=== PATIENT | female | born 1985 | race African-American/Black ===

== ENCOUNTER 2017-10-23 07:46 | Emergency (ER) | payer OTHER ==
[2017-10-23 07:51] VITALS: BP 113/63; PULSE 73; TEMP 98.1; BMI 42.5
[2017-10-23] MEDS ORDERED: KETOROLAC TROMETHAMINE 60 MG/2 ML VIAL IM ONE (08:23)
[2017-10-23] MEDS ORDERED: KETOROLAC TROMETHAMINE 60 MG/2 ML VIAL ONE (08:25)
--- NOTE | 2017-10-23 08:58 | PDOC ---
History of Present Illness - General Chief Complaint: Toothache Stated Complaint: TOOTHACHE Time Seen by Provider: 10/23/17 08:22 History Source: Patient Exam Limitations: No Limitations - History of Present Illness Initial Comments: 10/23/17 08:53 Patient is a [32-year-old female, denies any significant medical history presents with intermittent left upper and lower dental pain. Patient reports that she has been having this intermittent pain has cracked tooth to the left first lower molar. Does not have a dentist, no facial edema, no fever, no difficulty swallowing, no chest pain or shortness of breath.] Past Medical History: [Denies]. Allergies: No known allergies Medications: [None] Family History: Non-contributory Social History: Denies smoking, alcohol use, or IVDU Review of Systems GENERAL/CONSTITUTIONAL: [No fever or chills. No weakness. No weight change.] HEAD, EYES, EARS, NOSE AND THROAT: [No change in vision. No ear pain or discharge. No sore throat. Left-sided dental pain] CARDIOVASCULAR: [No chest pain or shortness of breath.] RESPIRATORY: [No cough, wheezing, or hemoptysis.] GASTROINTESTINAL: [No nausea, vomiting, diarrhea or constipation. No rectal bleeding.] GENITOURINARY: [No dysuria, frequency, or change in urination.] MUSCULOSKELETAL: [No joint or muscle swelling or pain. No neck or back pain.] SKIN AND BREASTS: [No rash or easy bruising.] NEUROLOGIC: [No headache, vertigo, loss of consciousness, or loss of sensation.] ENDOCRINE: [No increased thirst. No abnormal weight change.] HEMATOLOGIC/LYMPHATIC: [No anemia, easy bleeding, or history of blood clots.] ALLERGIC/IMMUNOLOGIC: [No hives or skin allergy. No latex allergy.] Physical Exam: GENERAL: [The patient is awake, alert, and fully oriented, in no acute distress. ] HEAD: [Normal with no signs of trauma.] EYES: [Pupils equal, round and reactive to light, extraocular movements intact, sclera anicteric, conjunctiva clear.] ENT: [Ears normal, nares patent, oropharynx clear without exudates. Moist mucous membranes. No uvula deviation. There is a fracture noted to tooth first left lower molar, with no visible abscess no fluctuance. ] NECK: [Normal range of motion, supple without lymphadenopathy, JVD, or masses. No edema.] LUNGS: [Breath sounds equal, clear to auscultation bilaterally. No wheezes, and no crackles.] HEART: [Regular rate and rhythm, normal S1 and S2 without murmur, rub or gallop. ] ABDOMEN: [Soft, nontender, normoactive bowel sounds. No guarding, no rebound. No masses. No bruising or abrasions] MUSCULOSKELETAL: [Normal range of motion, no edema. No clubbing or cyanosis. No cords, erythema, or tenderness. No CVA Tenderness with fist.] NEUROLOGICAL: [Cranial nerves II through XII grossly intact. Normal speech, normal gait.] SKIN: [Warm, Dry, normal turgor, no rashes or lesions noted.] Past History - Past Medical History Allergies/Adverse Reactions: Allergies Allergy/AdvReac Type Severity Reaction Status Date / Time Shellfish Allergy Severe Swelling Verified 10/23/17 07:51 Home Medications: Ambulatory Orders Amox-Tr/K Cl [Augmentin - 875Mg Tablet] 1 tab PO BID #14 tablet 10/23/17 Oxycodone HCl/Acetaminophen [Percocet 5-325 mg Tablet] 1 - 2 tab PO Q4H #20 tablet MDD 10 10/23/17 Cancer: No COPD: No - Suicide/Smoking/Psychosocial Hx Smoking Status: Yes Smoking History: Former smoker Have you smoked in the past 12 months: Yes Number of Cigarettes Smoked Daily: 20 If you are a former smoker, when did you quit?: 2011 Information on smoking cessation initiated: No 'Breaking Loose' booklet given: 05/10/12 Hx Alcohol Use: No Drug/Substance Use Hx: No Substance Use Type: None Hx Substance Use Treatment: No *Physical Exam - Vital Signs Last Vital Signs Temp Pulse Resp BP Pulse Ox 98.1 F 73 18 113/63 99 10/23/17 07:48 10/23/17 07:48 10/23/17 07:48 10/23/17 07:48 10/23/17 07:48 ED Treatment Course - Medications Given in the ED: ED Medications Discontinued Medications Generic Name Dose Route Start Last Admin Trade Name Freq PRN Reason Stop Dose Admin Ketorolac Tromethamine 60 mg 10/23/17 08:23 10/23/17 08:30 Toradol Injection - IM 10/23/17 08:24 60 mg ONCE ONE Administration Medical Decision Making - Medical Decision Making 10/23/17 09:03 A/P : Patient with dental pain cracked tooth possible root exposure. No visible abscess. Toradol 60 mg PO x 1 given with good result. Will DC patient on Augmentin, percocet for pain, follow up with Dental as soon as possible. There is no facial edema, no difficulty swallowing. *DC/Admit/Observation/Transfer Diagnosis at time of Disposition: Pain, dental - Discharge Dispostion Disposition: HOME Condition at time of disposition: Stable Admit: No - Prescriptions Prescriptions: Amox-Tr/K Cl [Augmentin - 875Mg Tablet] 1 tab PO BID #14 tablet Oxycodone HCl/Acetaminophen [Percocet 5-325 mg Tablet] 1 - 2 tab PO Q4H #20 tablet MDD 10 - Referrals - Patient Instructions Printed Discharge Instructions: DI for Dental Pain Additional Instructions: Warm salt water gargles. Please take motrin for minor pain, percoct for increased pain. Follow up with dental clinic. [phone] as soon as possible. - Post Discharge Activity Forms/Work/School Notes: Back to Work
== END 2017-10-23 09:01 | disposition home or self-care (01) ==
LOC: JERFT 07:46
PROC: 3E0233Z Introduction of Anti-inflammatory into Muscle, Percutaneous Approach (ICD-10-PCS; principal; 2017-10-23)
DX: K08.89 Other specified disorders of teeth and supporting structures (principal); K03.81 Cracked tooth; F17.210 Nicotine dependence, cigarettes, uncomplicated
CPT/HCPCS: 96372; 99281-25

== ENCOUNTER 2018-10-31 09:38 | Inpatient (IN) | payer OTHER ==
--- NOTE | 2018-10-31 11:17 | PDOC ---
History of Present Illness - General Chief Complaint: Wound Stated Complaint: CYSTS ON THE LOWER BACK Time Seen by Provider: 10/31/18 10:28 History Source: Patient Exam Limitations: No Limitations - History of Present Illness Initial Comments: 10/31/18 9:42 Patient came to emergency department for evaluation of blisters/cyst on her buttocks, top of but crack. States suffers from frequent sinus and infections, and has had multiple excisions/incision and drainage of hidradenitis, and breast cysts. States the onset of this was on Wednesday, she has been using hot soaks and boil ease creams with minimal resolved. States this felt feverish but did not take temperature, no other illness presently Timing/Duration: 1 week Severity: moderate, severe Past History - Travel Traveled outside of the country in the last 30 days: No Close contact w/someone who was outside of country & ill: No - Past Medical History Allergies/Adverse Reactions: Allergies Allergy/AdvReac Type Severity Reaction Status Date / Time Shellfish Allergy Severe Swelling Verified 10/31/18 10:21 Home Medications: Ambulatory Orders NK [No Known Home Medication] 10/31/18 Cancer: No COPD: No - Suicide/Smoking/Psychosocial Hx Smoking Status: Yes Smoking History: Unknown if ever smoked Have you smoked in the past 12 months: Yes Number of Cigarettes Smoked Daily: 20 If you are a former smoker, when did you quit?: 2011 'Breaking Loose' booklet given: 05/10/12 Hx Alcohol Use: No Drug/Substance Use Hx: No Substance Use Type: None Hx Substance Use Treatment: No Review of Systems - Review of Systems Able to Perform ROS?: Yes Is the patient limited Khmer proficient: Yes Constitutional: Yes: Symptoms Reported, See HPI, Chills, Fever, Malaise HEENTM: Yes: See HPI. No: Symptoms Reported Respiratory: Yes: See HPI. No: Symptoms reported Cardiac (ROS): No: Symptoms Reported ABD/GI: No: Symptoms Reported : Yes: Symptoms Reported Integumentary: Yes: Symptoms Reported, See HPI, Erythema, Lesions All Other Systems: Reviewed and Negative *Physical Exam - Vital Signs Last Vital Signs Temp Pulse Resp BP Pulse Ox 98.6 F 95 H 22 H 124/79 99 10/31/18 10:22 10/31/18 10:22 10/31/18 10:22 10/31/18 10:22 10/31/18 10:22 - Physical Exam General Appearance: Yes: Nourished, Appropriately Dressed, Apparent Distress, Mild Distress, Moderate Distress HEENT: positive: ANNA, Normal ENT Inspection, TMs Normal, Pharynx Normal Neck: positive: Supple. negative: Tender Respiratory/Chest: positive: Lungs Clear, Normal Breath Sounds Gastrointestinal/Abdominal: positive: Soft Musculoskeletal: negative: Normal Inspection Extremity: positive: Normal Capillary Refill, Normal Inspection, Normal Range of Motion Integumentary: positive: Erythema (and indurated, nonfluctuant and approximately 15 cm at top of buttocks crease) Neurologic: positive: dynamometer mechanic II-XII NML intact, Fully Oriented, Alert, Normal Mood/ Affect, Normal Response, Motor Strength 5/5 Moderate Sedation - Procedure Monitoring Vital Signs: Procedure Monitoring Vital Signs Temperature 98.6 F 10/31/18 10:22 Pulse Rate 95 H 10/31/18 10:22 Respiratory Rate 22 H 10/31/18 10:22 Blood Pressure 124/79 10/31/18 10:22 O2 Sat by Pulse Oximetry (%) 99 10/31/18 10:22 ED Treatment Course - LABORATORY CBC & Chemistry Diagram: 10/31/18 11:26 10/31/18 11:26 Medical Decision Making - Medical Decision Making 10/31/18 11:47 Extensive abscess to buttocks, Dr. Montoya has come to evaluate patient and agrees will incise and drain in the operating room. We will admit to medicine as patient has no local hospitalist. Dr. Limi been notified and agrees to accept patient. *DC/Admit/Observation/Transfer Diagnosis at time of Disposition: Abscess of buttock - Discharge Dispostion Condition at time of disposition: Stable Decision to Admit order: Yes - Referrals - Patient Instructions - Post Discharge Activity
[2018-10-31] MEDS ORDERED: CLINDAMYCIN 600MG PREMIX IVPB 600 MG/50 ML BAG IVPB ONE ×2 (11:26→11:53)
[2018-10-31] MEDS ORDERED: morphine SULFATE 4 MG/ML VIAL IVPUSH ONE (11:28)
[2018-10-31 11:39] LABS: BASO % 0.8 % (0-2.0); EOS % 2.9 % (0-4.5); HEMATOCRIT 26.5 % (32.4-45.2); HEMOGLOBIN 8.3 GM/dL (10.7-15.3); LYMPH % 15.9 % (8-40); MCHC 31.4 g/dl (32.0-36.0); MEAN CELL VOLUME 61.3 fl (80-96); MEAN PLT VOLUME 9.2 fl (7.5-11.1); MONO % 8.1 % (3.8-10.2); NEUT % 72.3 % (42.8-82.8); PLATELET COUNT 278 K/MM3 (134-434); RBC 4.32 M/mm3 (3.60-5.2); RDW 17.2 % (11.6-15.6); WHITE BLOOD COUNT 9.2 K/mm3 (4.0-10.0)
[2018-10-31] MEDS ORDERED: morphine SULFATE 4 MG/ML VIAL ONE (11:45)
[2018-10-31 11:47] LABS: MCH 19.2 pg (25.7-33.7)
[2018-10-31] MEDS: SODIUM CHLORIDE 1,000 ML IV SCH ×2 (11:48→17:34)
[2018-10-31 12:01] LABS: INR 1.18 (0.83-1.09); PROTHROMBIN TIME (PATIENT) 13.9 SEC (9.7-13.0)
[2018-10-31 12:12] LABS: ALBUMIN 3.4 g/dl (3.4-5.0); ALK PHOS 82 U/L (45-117); ANION GAP 6 MMOL/L (8-16); BILIRUBIN,TOTAL 0.2 mg/dL (0.2-1); BLOOD UREA NITROGEN 7 mg/dL (7-18); CALCIUM 8.8 mg/dL (8.5-10.1); CHLORIDE 106 mmol/L (98-107); CO2 27 mmol/L (21-32); CREATININE 0.6 mg/dL (0.55-1.3); GLUCOSE,RANDOM 89 mg/dL (74-106); POTASSIUM 4.2 mmol/L (3.5-5.1); SGOT/AST 15 U/L (15-37); SGPT/ALT 23 U/L (13-61); SODIUM 140 mmol/L (136-145); TOT PROT 7.4 g/dl (6.4-8.2)
[2018-10-31] MEDS ORDERED: PROPOFOL 20 ML ONE (13:06)
[2018-10-31] MEDS ORDERED: LIDOCAINE HCL/PF 2% SDV 5ML VIAL ONE (13:06)
[2018-10-31] MEDS ORDERED: MIDAZOLAM HCL 2 MG/2 ML SINGLE DOSE VIAL ONE (13:06)
[2018-10-31] MEDS ORDERED: ROCURONIUM BROMIDE 50 MG/5 ML VIAL ONE (13:10)
--- NOTE | 2018-10-31 13:26 | CONSULT ---
- Consultation REQUESTING PROVIDER: HILARIO Little CONSULT REQUEST: We have been asked to surgically evaluate this patient for ( specify). PCP:Zhang Ames HISTORY OF PRESENT ILLNESS: CTSP for 1 week of pain and swelling of her b/l upper buttocks PMHx: h/o soft tissue abscesses in the past PSHx: I and D breast abscess Home Medications Medication Instructions Recorded NK [No Known Home Medication] 10/31/18 Allergies Allergy/AdvReac Type Severity Reaction Status Date / Time Shellfish Allergy Severe Swelling Verified 10/31/18 10:21 REVIEW OF SYSTEMS: CONSTITUTIONAL: Absent: fever, chills, diaphoresis, generalized weakness, malaise, loss of appetite, weight change CARDIOVASCULAR: Absent: chest pain, syncope, palpitations, irregular heart rate, lightheadedness , peripheral edema RESPIRATORY: Absent: cough, shortness of breath, dyspnea with exertion, wheezing, stridor, hemoptysis GASTROINTESTINAL: Absent: abdominal pain, abdominal distension, nausea, vomiting, diarrhea, constipation, melena, hematochezia GENITOURINARY: Absent: dysuria, frequency, urgency, hesitancy, hematuria, flank pain, genital pain MUSCULOSKELETAL: Absent: myalgia, arthralgia, joint swelling, back pain, neck pain SKIN: Present: skin infection HEMATOLOGIC/IMMUNOLOGIC: Absent: easy bleeding, easy bruising, lymphadenopathy NEUROLOGIC: Absent: headache, focal weakness, paresthesias, dizziness, unsteady gait, seizure, mental status changes, bladder or bowel incontinence PSYCHIATRIC: Absent: anxiety, depression, suicidal or homicidal ideation, hallucinations. PHYSICAL EXAM: GENERAL: Awake, alert, and fully oriented, in no acute distress. HEAD: Normal with no signs of trauma. EYES: Sclera anicteric, conjunctiva clear. NECK: Normal ROM, supple without lymphadenopathy, JVD, or masses. ABDOMEN: Soft, nontender, not distended, normoactive bowel sounds, no guarding, no rebound, no masses. No organomegaly. MUSCULOSKELETAL: Normal ROM at all joints. No bony deformities or tenderness. No CVA tenderness. UPPER EXTREMITIES: 2+ pulses, warm, well-perfused. No cyanosis. Cap refill <2 seconds. No peripheral edema. LOWER EXTREMITIES: 2+ pulses, warm, well-perfused. No calf tenderness. No peripheral edema. NEUROLOGICAL: Normal speech, gait not observed. PSYCH: Cooperative. Good eye contact. Appropriate mood and affect. SKIN: B/L upper medial buttock erythema and ttp c/w abscess and ?? pilonidal Vital Signs Temperature 98.7 F 10/31/18 13:02 Pulse Rate 89 10/31/18 13:02 Respiratory Rate 18 10/31/18 13:02 Blood Pressure 139/70 10/31/18 13:02 O2 Sat by Pulse Oximetry (%) 99 10/31/18 10:22 Lab Results WBC 9.2 K/mm3 (4.0-10.0) 10/31/18 11:26 RBC 4.32 M/mm3 (3.60-5.2) 10/31/18 11:26 Hgb 8.3 GM/dL (10.7-15.3) L 10/31/18 11:26 Hct 26.5 % (32.4-45.2) L D 10/31/18 11:26 MCV 61.3 fl (80-96) L 10/31/18 11:26 MCHC 31.4 g/dl (32.0-36.0) L 10/31/18 11:26 RDW 17.2 % (11.6-15.6) H 10/31/18 11:26 Plt Count 278 K/MM3 (134-434) 10/31/18 11:26 Sodium 140 mmol/L (136-145) 10/31/18 11:26 Potassium 4.2 mmol/L (3.5-5.1) 10/31/18 11:26 Chloride 106 mmol/L (98-107) 10/31/18 11:26 Carbon Dioxide 27 mmol/L (21-32) 10/31/18 11:26 Anion Gap 6 MMOL/L (8-16) L 10/31/18 11:26 BUN 7 mg/dL (7-18) 10/31/18 11:26 Creatinine 0.6 mg/dL (0.55-1.3) 10/31/18 11:26 Random Glucose 89 mg/dL (74-106) 10/31/18 11:26 Calcium 8.8 mg/dL (8.5-10.1) 10/31/18 11:26 INR 1.18 (0.83-1.09) H 10/31/18 11:26 IMP: ABSSSI of the medial buttock b/l; ? pilonidal abscess PLAN: I and D; r/b/t/a's d/w the patient. Isidro Montoya MD FACS
[2018-10-31 14:42] LABS: ANISOCYTOSIS 2+
[2018-10-31 14:43] LABS: OVALOCYTE 1+
--- NOTE | 2018-10-31 16:59 | HP ---
Admitting History and Physical - Primary Care Physician PCP: Zhang Ames - Admission History of Present Illness: Patient came to emergency department for evaluation of blisters/cyst on her buttocks, top of but crack. States suffers from frequent sinus and infections, and has had multiple excisions/incision and drainage of hidradenitis, and breast cysts. States the onset of this was on Wednesday, she has been using hot soaks and boil ease creams with minimal resolved. States this felt feverish but did not take temperature, no other illness presently - Past Medical History ...LMP: 10/11/18 ...: No - Smoking History Smoking history: Unknown if ever smoked Have you smoked in the past 12 months: Yes Aproximately how many cigarettes per day: 20 If you are a former smoker, when did you quit?: 2011 - Alcohol/Substance Use Hx Alcohol Use: No Home Medications - Allergies Allergies/Adverse Reactions: Allergies Allergy/AdvReac Type Severity Reaction Status Date / Time Shellfish Allergy Severe Swelling Verified 10/31/18 10:21 No Known Drug Allergies Allergy Verified 11/01/18 07:57 - Home Medications Home Medications: Ambulatory Orders Amox-Tr/K Cl [Augmentin 875-125mg Tablet -] 1 tab PO BID@0800,1730 #14 tablet Physical Examination Vital Signs: Vital Signs Temperature 98.7 F 10/31/18 13:02 Pulse Rate 89 10/31/18 13:02 Respiratory Rate 18 10/31/18 13:02 Blood Pressure 139/70 10/31/18 13:02 O2 Sat by Pulse Oximetry (%) 100 10/31/18 13:00 Constitutional: Yes: No Distress HENT: Yes: Atraumatic Neck: Yes: Supple Cardiovascular: Yes: Regular Rate and Rhythm Respiratory: Yes: CTA Bilaterally Gastrointestinal: Yes: Normal Bowel Sounds Musculoskeletal: Yes: Other (abcess on tail bone) Extremities: Yes: WNL Edema: No Peripheral Pulses WNL: Yes Labs: CBC, BMP 10/31/18 11:26 10/31/18 11:26 Problem List - Problems (1) Abscess of buttock Assessment/Plan: iv abx for Iand d Code(s): L02.31 - CUTANEOUS ABSCESS OF BUTTOCK Assessment/Plan Laboratory Tests 10/31/18 10/31/18 10/31/18 11:26 11:26 11:26 WBC 9.2 RBC 4.32 Hgb 8.3 L Hct 26.5 L D MCV 61.3 L MCH 19.2 L D MCHC 31.4 L RDW 17.2 H Plt Count 278 MPV 9.2 Absolute Neuts (auto) 6.7 Neutrophils % 72.3 Lymphocytes % 15.9 D Monocytes % 8.1 Eosinophils % 2.9 Basophils % 0.8 Nucleated RBC % 0 Hypochromia 2+ Polychromasia 1+ Poikilocytosis 1+ Anisocytosis 2+ Microcytosis 2+ Ovalocytes 1+ PT with INR 13.90 H INR 1.18 H Sodium 140 Potassium 4.2 Chloride 106 Carbon Dioxide 27 Anion Gap 6 L BUN 7 Creatinine 0.6 Creat Clearance w eGFR > 60 Random Glucose 89 Calcium 8.8 Total Bilirubin 0.2 AST 15 ALT 23 Alkaline Phosphatase 82 Total Protein 7.4 Albumin 3.4 Beta HCG, Quant < 1.0 Blood Type Antibody Screen 10/31/18 11:26 WBC RBC Hgb Hct MCV MCH MCHC RDW Plt Count MPV Absolute Neuts (auto) Neutrophils % Lymphocytes % Monocytes % Eosinophils % Basophils % Nucleated RBC % Hypochromia Polychromasia Poikilocytosis Anisocytosis Microcytosis Ovalocytes PT with INR INR Sodium Potassium Chloride Carbon Dioxide Anion Gap BUN Creatinine Creat Clearance w eGFR Random Glucose Calcium Total Bilirubin AST ALT Alkaline Phosphatase Total Protein Albumin Beta HCG, Quant Blood Type B POSITIVE Antibody Screen Negative Active Medications Generic Name Dose Route Start Last Admin Trade Name Freq PRN Reason Stop Dose Admin Sodium Chloride 1,000 mls @ 125 mls/hr 10/31/18 11:30 10/31/18 11:48 Normal Saline - IV 125 mls/hr ASDIR FAUSTO Administration Active Medications Generic Name Dose Route Start Last Admin Trade Name Freq PRN Reason Stop Dose Admin Amoxicillin/Clavulanate Potassium 1 tab 11/01/18 17:30 Augmentin - 875mg Tablet PO BID@0800,1730 FAUSTO Sodium Chloride 1,000 mls @ 125 mls/hr 11/01/18 09:25 11/01/18 10:10 Normal Saline - IV 0 mls ASDIR FAUSTO Administration Ibuprofen 800 mg 11/01/18 09:25 11/01/18 10:34 Caldolor Injection - IVPB 02/06/19 09:24 800 mg Q6H PRN Administration Pain - Pacu Ondansetron HCl 4 mg 11/01/18 09:25 Zofran Injection IVPUSH 11/02/18 09:24 Q6H PRN NAUSEA AND/OR VOMITING
[2018-10-31] MEDS ORDERED: IBUPROFEN 600 MG TABLET (FP) PO ONE (17:45)
[2018-11-01] MEDS: SODIUM CHLORIDE 1,000 ML IV SCH (00:01)
[2018-11-01] MEDS ORDERED: IBUPROFEN 800 MG/8 ML IJ IVPB PRN (07:53)
[2018-11-01] MEDS ORDERED: ONDANSETRON 4 MG/2 ML VIAL IVPUSH PRN ×2 (07:53→09:25)
[2018-11-01 08:00] LABS: BASO % 1.3 % (0-2.0); EOS % 4.4 % (0-4.5); HEMATOCRIT 26.9 % (32.4-45.2); HEMOGLOBIN 8.3 GM/dL (10.7-15.3); LYMPH % 22.1 % (8-40); MCHC 30.7 g/dl (32.0-36.0); MEAN CELL VOLUME 61.4 fl (80-96); MEAN PLT VOLUME 9.4 fl (7.5-11.1); MONO % 10.4 % (3.8-10.2); NEUT % 61.8 % (42.8-82.8); PLATELET COUNT 293 K/MM3 (134-434); RBC 4.39 M/mm3 (3.60-5.2); RDW 17.4 % (11.6-15.6); WHITE BLOOD COUNT 6.7 K/mm3 (4.0-10.0)
[2018-11-01] MEDS ORDERED: LACTATED RINGERS SOLUTION 1,000 ML IV SCH ×2 (08:00→09:25)
[2018-11-01] MEDS ORDERED: LIDOCAINE HCL/PF 2% SDV 5ML VIAL ONE (08:02)
[2018-11-01] MEDS ORDERED: SUCCINYLCHOLINE CHLORIDE 200 MG/10 ML VIAL ONE (08:02)
[2018-11-01] MEDS ORDERED: VANCOMYCIN 1,000 MG VIAL (RESTRICTED TO ID ONLY) ONE (08:02)
[2018-11-01] MEDS ORDERED: MIDAZOLAM HCL 2 MG/2 ML SINGLE DOSE VIAL ONE (08:02)
[2018-11-01] MEDS ORDERED: PROPOFOL 20 ML ONE ×2 (08:02)
[2018-11-01 08:13] LABS: MCH 18.9 pg (25.7-33.7)
[2018-11-01 08:26] LABS: ALBUMIN 3.1 g/dl (3.4-5.0); ALK PHOS 80 U/L (45-117); ANION GAP 5 MMOL/L (8-16); BILIRUBIN,TOTAL 0.2 mg/dL (0.2-1); BLOOD UREA NITROGEN 6 mg/dL (7-18); CALCIUM 8.1 mg/dL (8.5-10.1); CHLORIDE 109 mmol/L (98-107); CO2 25 mmol/L (21-32); CREATININE 0.6 mg/dL (0.55-1.3); GLUCOSE,RANDOM 101 mg/dL (74-106); POTASSIUM 4.4 mmol/L (3.5-5.1); SGOT/AST 21 U/L (15-37); SGPT/ALT 29 U/L (13-61); SODIUM 138 mmol/L (136-145); TOT PROT 7.1 g/dl (6.4-8.2)
[2018-11-01] MEDS ORDERED: VANCOMYCIN 1,000 MG VIAL (RESTRICTED TO ID ONLY) IVPB ONE (08:27)
--- NOTE | 2018-11-01 09:09 | OP ---
Operative Note - Note: Operative Date: 11/01/18 Pre-Operative Diagnosis: b/l upper buttock abscesses (pilonidal abscess) Operation: incision and drainage Findings: as above. Post-Operative Diagnosis: Same as Pre-op Surgeon: Isidro Montoya Anesthesiologist/AUTOMOBILE RELOCATION ENGINEER: Daniela Gonzalez Anesthesia: General Estimated Blood Loss (mls): 10 Drains & Tubes with Location: 1" Iodoform packing
[2018-11-01] MEDS ORDERED: SODIUM CHLORIDE 1,000 ML IV SCH (09:25)
--- NOTE | 2018-11-01 10:14 | OP ---
DATE OF OPERATION: 11/01/2018 PREOPERATIVE DIAGNOSIS: Bilateral upper buttock abscess (pilonidal abscess). POSTOPERATIVE DIAGNOSIS: Bilateral upper buttock abscess (pilonidal abscess). PROCEDURE: Incision and drainage. SURGEON: Isidro Montoya MD ANESTHESIA: General. OPERATIVE FINDINGS: There were bilateral upper buttocks collections consistent with an infected pilonidal cyst and sinus tract. The rest of the findings were unremarkable. DESCRIPTION OF PROCEDURE: The patient was placed on the operating table in the supine position, and after the induction of general anesthesia, was turned and placed in the prone position. The area over the buttocks was prepped with ChloraPrep and draped in sterile fashion. Timeout was taken, and bilateral skin incisions were made on either side of the midline and taken down through skin and subcutaneous tissue. Abundant purulent drainage was encountered and sent for culture and sensitivity. All loculations were broken up using blunt dissection, and both abscess cavities connected and via skin bridge. Copious irrigation with saline and peroxide in a 50/50 concentration was carried out, and then, hemostasis was secured with electrocautery. Continued irrigation with normal saline was carried out. Hemostasis verified, and then, the incision packed with 1-inch Iodoform packing, followed by dry sterile dressings. Patient was then turned into the supine position and extubated in the operating room and transferred to the postanesthesia care unit in stable condition, awake and alert. ESTIMATED BLOOD LOSS: Minimal. DRAINS: One-inch Iodoform packing. SPECIMENS: Culture and sensitivity of purulent drainage to Microbiology. I, Isidro Montoya, was physically present in the operating room from the time the patient was placed on the operating table until she was transferred to the postanesthesia care unit in my accompaniment. MD JOHAN Hopkins/[id number]
[2018-11-01] MEDS: IBUPROFEN 800 MG/8 ML IJ IVPB PRN (10:34)
[2018-11-01] MEDS ORDERED: ONDANSETRON 4 MG/2 ML VIAL IVPUSH ONE (13:01)
--- NOTE | 2018-11-01 16:06 | DS ---
Physical Examination Vital Signs: Vital Signs Temperature 98.9 F 11/01/18 13:36 Pulse Rate 92 H 11/01/18 13:36 Respiratory Rate 18 11/01/18 13:36 Blood Pressure 112/50 L 11/01/18 13:36 O2 Sat by Pulse Oximetry (%) 100 11/01/18 10:37 Labs: CBC, BMP 11/01/18 06:45 11/01/18 06:45 Discharge Summary Reason For Visit: ABSCESS OF BUTTOCK Current Active Problems Abscess of buttock (Acute) Condition: Stable - Instructions Diet, Activity, Other Instructions: dressing change as per surgery - Home Medications Comprehensive Discharge Medication List: Ambulatory Orders Amox-Tr/K Cl [Augmentin 875-125mg Tablet -] 1 tab PO BID@0800,1730 #14 tablet dc
[2018-11-01] MEDS ORDERED: INSULIN (NOVOLOG) ASPART 100 UNITS/ML 10ML VIAL ONE (17:06)
[2018-11-01] MEDS: AMOX TR/POT CLAV 875MG/125MG TABLETS (FP) PO SCH (17:24)
--- NOTE | 2018-11-01 18:56 | PN ---
Progress Note, Physician History of Present Illness: doing well - Current Medication List Current Medications: Active Medications Amoxicillin/Clavulanate Potassium (Augmentin - 875mg Tablet) 1 tab PO BID@0800, 1730 [facility] Last Admin: 11/01/18 17:24 Dose: 1 tab Sodium Chloride (Normal Saline -) 1,000 mls @ 125 mls/hr IV ASDIR FAUSTO Last Admin: 11/01/18 10:10 Dose: 0 mls Ibuprofen (Caldolor Injection -) 800 mg IVPB Q6H PRN PRN Reason: Pain - Pacu Stop: 11/02/18 09:24 Last Admin: 11/01/18 10:34 Dose: 800 mg Ondansetron HCl (Zofran Injection) 4 mg IVPUSH Q6H PRN PRN Reason: NAUSEA AND/OR VOMITING Stop: 11/02/18 09:24 - Objective Vital Signs: Vital Signs Temperature 98.9 F 11/01/18 13:36 Pulse Rate 92 H 11/01/18 13:36 Respiratory Rate 18 11/01/18 13:36 Blood Pressure 112/50 L 11/01/18 13:36 O2 Sat by Pulse Oximetry (%) 100 11/01/18 10:37 Constitutional: Yes: No Distress HENT: Yes: Atraumatic Neck: Yes: Supple Cardiovascular: Yes: Regular Rate and Rhythm Respiratory: Yes: CTA Bilaterally Gastrointestinal: Yes: Normal Bowel Sounds Extremities: Yes: WNL Edema: No Peripheral Pulses WNL: Yes Wound/Incision: Yes: Other (dressing in place) Neurological: Yes: Alert, Oriented Labs: CBC, BMP 11/01/18 06:45 11/01/18 06:45 INR, PTT INR 1.18 (0.83-1.09) H 10/31/18 11:26 Problem List - Problems (1) Abscess of buttock Assessment/Plan: iv abx wound caredressing change Code(s): L02.31 - CUTANEOUS ABSCESS OF BUTTOCK
[2018-11-02] MEDS: IBUPROFEN 800 MG/8 ML IJ IVPB PRN (01:02)
[2018-11-02] MEDS ORDERED: morphine CARPU-JECT 2 MG/1 ML DISP.SYRIN IVPUSH PRN (07:50)
[2018-11-02] MEDS ORDERED: MORPHINE SULFATE 2 MG/ML VIAL IVPUSH PRN (08:01)
[2018-11-02] MEDS: AMOX TR/POT CLAV 875MG/125MG TABLETS (FP) PO SCH (08:03)
[2018-11-02] MEDS ORDERED: IBUPROFEN 400 MG TABLET (FP) PO ONE (08:45)
--- NOTE | 2018-11-02 09:38 | PN ---
Progress Note (short form) - Note Progress Note: POD 1, s/p I&D of pilonidal abscess Pt seen and examined. Reports pain is controlled with medications (IV Ibuprofen) . Has been oob without issue. Tolerating PO. Voiding without issue. Denies cp/ sob, n/v/d. Vital Signs Temp 98.9 F 11/02/18 08:58 Pulse 83 11/02/18 08:58 Resp 20 11/02/18 08:58 BP 128/53 L 11/02/18 08:58 Pulse Ox 100 11/01/18 22:00 Intake & Output 11/01/18 11/01/18 11/02/18 11:59 23:59 11:59 Intake Total 1750 780 250 Output Total 5 Balance 1745 780 250 Intake: IV 1750 300 Normal Saline - 1,000 ml 300 @ 125 mls/hr IV ASDIR FAUSTO Rx#:[id number] saline lock 1000 IVPB 250 Oral 480 Output: Estimated Blood Loss 5 Other: Voiding Method Toilet Toilet # Unmeasured Voids Void 2 2 Bowel Movement No CBC, BMP 11/01/18 06:45 11/01/18 06:45 Gen: awake, alert, nad. Laying in bed on stomach, appears comfortable. Resp: unlabored on RA. Lower back/gluteal area: ABD/4x4 with moderate serosanguinous drainage. Dressing removed. Packing in place with moderate serosanguinous drainage. B/L wounds (approx 1.5 inches in length) adjacent to eachother with small skin bridge between (.5cm) +communication between. Wound beds clean with scant fibrinous exudate, scant serosanguinous drainage, no erythema or foul odor. Repacked with damp to dry 4x4, covered with Kerlix/tape. A/P: 33 y/o F w/ h/o prior abscess due to hidradenitis, now POD 1, s/p I&D of pilonidal abscess. Doing well, pain controlled, wound stable. -Cleared for d/c from Surgery standpoint -D/c instructions reviewed with pt who verbalized understanding. D/c instructions added to d/c paperwork -Rn aware of above reccs and d/c reccs -Pt should f/u in the office with Dr Montoya on 11/08/18 pt seen and examined with attending Dr Montoya
[2018-11-02] MEDS ORDERED: IBUPROFEN 600 MG TABLET (FP) PO PRN (10:38)
[2018-11-02 12:18] VITALS: BMI 40.5
--- NOTE | 2018-11-02 12:45 | CON.ID ---
Consult Consult Specialty:: infectious diseases Referred by:: Reason for Consultation:: positive blood cx and uti - History of Present Illness Chief Complaint: gluteal abscess History of Present Illness: patient was admitted for evaluation of blisters/cyst on her buttocks, top of but crack. States suffers from frequent sinus and infections, and has had multiple excisions/incision and drainage of hidradenitis, and breast cysts. States the onset of this was on Wednesday, she has been using hot soaks and boil ease creams with minimal resolved. States this felt feverish but did not take temperature, no other illness presently patient was then seen by surgery department and patient underwent i and d of the abscess post op patient was doing well patients cx reports came back as gm positive bacteremia and mssa in urine currently patient is doing well - History Source History Provided By: Patient Limitations to Obtaining History: No Limitations - Past Medical History ...LMP: 10/11/18 ...: No - Alcohol/Substance Use Hx Alcohol Use: No - Smoking History Smoking history: Unknown if ever smoked Have you smoked in the past 12 months: Yes Aproximately how many cigarettes per day: 20 If you are a former smoker, when did you quit?: 2012 Home Medications - Allergies Allergies/Adverse Reactions: Allergies Allergy/AdvReac Type Severity Reaction Status Date / Time Shellfish Allergy Severe Swelling Verified 10/31/18 10:21 No Known Drug Allergies Allergy Verified 11/01/18 07:57 - Home Medications Home Medications: Ambulatory Orders Amox-Tr/K Cl [Augmentin 875-125mg Tablet -] 1 tab PO BID@0800,1730 #14 tablet Review of Systems - Review of Systems Constitutional: reports: No Symptoms Eyes: reports: No Symptoms HENT: reports: No Symptoms Neck: reports: No Symptoms Cardiovascular: reports: No Symptoms Respiratory: reports: No Symptoms Gastrointestinal: reports: No Symptoms Musculoskeletal: reports: No Symptoms Integumentary: reports: Blister, Other (abscess on the buttocks) Neurological: reports: No Symptoms Endocrine: reports: No Symptoms Hematology/Lymphatic: reports: No Symptoms Psychiatric: reports: No Symptoms Physical Exam Vital Signs: Vital Signs Temperature 98.9 F 11/02/18 08:58 Pulse Rate 83 11/02/18 08:58 Respiratory Rate 20 11/02/18 08:58 Blood Pressure 128/53 L 11/02/18 08:58 O2 Sat by Pulse Oximetry (%) 96 11/02/18 09:00 Constitutional: Yes: Well Nourished, Obese Cardiovascular: Yes: Regular Rate and Rhythm Respiratory: Yes: Regular, CTA Bilaterally Gastrointestinal: Yes: Normal Bowel Sounds, Soft Musculoskeletal: Yes: WNL Extremities: Yes: WNL Wound/Incision: Yes: Clean/Dry Neurological: Yes: Alert, Oriented Psychiatric: Yes: Alert, Oriented Labs: CBC, BMP 11/01/18 06:45 11/01/18 06:45 Assessment/Plan patient coming wiht abscess in the gluteal region underwent drainage of the same morbid obesity gluteal abscess gm positive bacteremia wound infection plan will start patient on vanco await for identification of the organism wound care rest as per the team
--- NOTE | 2018-11-02 13:32 | PN ---
Progress Note (short form) - Note Progress Note: Day 1 s/p I&D of buttock abscess under GA. Pt has pain, but is taking PO pain meds and feels that pain is under good control. No anesthetic issues/ complications noted- pt doing well.
[2018-11-02] MEDS: VANCOMYCIN 1,250 MG in DEXTROSE 5%-WATER - 250 ML IVPB SCH (13:45)
--- NOTE | 2018-11-02 14:46 | PN ---
Progress Note, Physician History of Present Illness: doing well - Current Medication List Current Medications: Active Medications Sodium Chloride (Normal Saline -) 1,000 mls @ 125 mls/hr IV ASDIR FAUSTO Last Admin: 11/01/18 10:10 Dose: 0 mls Vancomycin HCl 1,250 mg/ (Dextrose) 250 mls @ 166.667 mls/hr IVPB Q12H FAUSTO; Protocol Last Admin: 11/02/18 13:45 Dose: 166.667 mls/hr Ibuprofen (Motrin -) 600 mg PO Q6H PRN PRN Reason: PAIN LEVEL 1-5 Morphine Sulfate (Morphine Sulfate) 2 mg IVPUSH Q6H PRN PRN Reason: PAIN LEVEL 7 - 10 - Objective Vital Signs: Vital Signs Temperature 98.5 F 11/02/18 13:17 Pulse Rate 91 H 11/02/18 13:17 Respiratory Rate 21 H 11/02/18 13:17 Blood Pressure 130/71 11/02/18 13:17 O2 Sat by Pulse Oximetry (%) 96 11/02/18 09:00 Constitutional: Yes: No Distress Neck: Yes: Supple Cardiovascular: Yes: Regular Rate and Rhythm Gastrointestinal: Yes: Normal Bowel Sounds Extremities: Yes: WNL Edema: No Peripheral Pulses WNL: Yes Neurological: Yes: Alert, Oriented Labs: CBC, BMP 11/01/18 06:45 11/01/18 06:45 INR, PTT INR 1.18 (0.83-1.09) H 10/31/18 11:26 Problem List - Problems (1) Abscess of buttock Assessment/Plan: iv abx per cxs wound caredressing change id on board Code(s): L02.31 - CUTANEOUS ABSCESS OF BUTTOCK
[2018-11-03] MEDS: VANCOMYCIN 1,250 MG in DEXTROSE 5%-WATER - 250 ML IVPB SCH (00:55)
[2018-11-03 14:54] VITALS: BP 112/52; PULSE 88; TEMP 98.4
--- NOTE | 2018-11-03 15:08 | PN ---
Progress Note, Physician History of Present Illness: stable no complaints - Current Medication List Current Medications: Active Medications Sodium Chloride (Normal Saline -) 1,000 mls @ 125 mls/hr IV ASDIR FAUSTO Last Admin: 11/01/18 10:10 Dose: 0 mls Ibuprofen (Motrin -) 600 mg PO Q6H PRN PRN Reason: PAIN LEVEL 1-5 Last Admin: 11/02/18 19:54 Dose: 600 mg Morphine Sulfate (Morphine Sulfate) 2 mg IVPUSH Q6H PRN PRN Reason: PAIN LEVEL 7 - 10 - Objective Vital Signs: Vital Signs Temperature 98.4 F 11/03/18 14:00 Pulse Rate 88 11/03/18 14:00 Respiratory Rate 21 H 11/03/18 14:00 Blood Pressure 112/52 L 11/03/18 14:00 O2 Sat by Pulse Oximetry (%) 97 11/02/18 21:00 Constitutional: Yes: No Distress, Calm, Obese Cardiovascular: Yes: Regular Rate and Rhythm Respiratory: Yes: Regular, CTA Bilaterally Gastrointestinal: Yes: Normal Bowel Sounds, Soft Genitourinary: Yes: Anuria Musculoskeletal: Yes: WNL Extremities: Yes: WNL Wound/Incision: Yes: Dressing Dry and Intact Neurological: Yes: Alert, Oriented Labs: CBC, BMP 11/01/18 06:45 11/01/18 06:45 INR, PTT INR 1.18 (0.83-1.09) H 10/31/18 11:26 Assessment/Plan patient coming wiht abscess in the gluteal region underwent drainage of the same morbid obesity gluteal abscess gm positive bacteremia wound infection gm positive bactermia plan cx results noted will stop vanco doay for 10 days rest as per the team
--- NOTE | 2018-11-03 16:45 | DS ---
Physical Examination Vital Signs: Vital Signs Temperature 98.4 F 11/03/18 14:00 Pulse Rate 88 11/03/18 14:00 Respiratory Rate 21 H 11/03/18 14:00 Blood Pressure 112/52 L 11/03/18 14:00 O2 Sat by Pulse Oximetry (%) 97 11/02/18 21:00 Constitutional: Yes: No Distress HENT: Yes: Atraumatic Neck: Yes: Supple Cardiovascular: Yes: Regular Rate and Rhythm Respiratory: Yes: CTA Bilaterally Gastrointestinal: Yes: Normal Bowel Sounds Extremities: Yes: WNL Neurological: Yes: Alert, Oriented Labs: CBC, BMP 11/01/18 06:45 11/01/18 06:45 Discharge Summary Reason For Visit: ABSCESS OF BUTTOCK Current Active Problems Abscess of buttock (Acute) Condition: Stable - Instructions Diet, Activity, Other Instructions: dressing change as per surgery see your pmd 2-3 days patient should stay home to heal , see your doctor to get clearance to go back to work Dr. Montoya Discharge Instructions Post Operative Instructions Physical activity Resume your normal everyday activity as tolerated no heavy lifting or exercise until seen by your surgeon. You may walk unlimited amounts of and climb stairs. You may resume driving the car when you feel safe and comfortable behind the wheel and are no longer taking narcotic pain medications. Wound care Leave your dressing on until tomorrow, 11/03. You may shower tomorrow. At that time remove your dressing. When showering, allow soap and water to run over the incision, pat dry well after showering and cover with a large dressing. Change the dressing daily or more often if heavily saturated. Check the dressing daily for redness, foul odor, or thick discolored drainage. Diet There are no dietary restrictions. Eat healthy, high-fiber foods. Drink 6 to 8 glasses of liquid each day. This will assist in keeping your bowels are regular. Pain management You may take Tylenol (Acetaminophen) or Ibuprofen (for example, Motrin, Advil etc) for mild pain. Any pain prescription medication ordered should be taken as prescribed for moderate to severe pain. Please take as directed. If the prescribed dosage is not controlling your pain, please contact Dr Montoya. Do not drive, drink alcohol or operate heavy machinery while taking narcotic pain medications. You may Acetaminophen and Ibuprofen alternating. For example, you can take Acetaminophen at 10AM followed by Ibuprofen at 1pm, and Acetaminophen at 4pm. Do not take extra Acetaminophen (Tylenol) if your narcotic pain medication contains (Acetaminophen) Tylenol. Take Ibuprofen with food, Acetaminophen may be taken on an empty stomach. Do not exceed 3g (3000mg) of Acetaminophen in 24 hours. Do not exceed 2400mg Ibuprofen in [address] Montoya for any of the following: Severe pain not relieved by medication Fever of 101 or higher Excessive bleeding or drainage on dressing Inability to urinate Call the office at [phone] for a post operative appointment for Wednesday, 09/14. - Home Medications Comprehensive Discharge Medication List: Ambulatory Orders Amox-Tr/K Cl [Augmentin 875-125mg Tablet -] 1 tab PO BID@0800,1730 #14 tablet [facility]
[2018-11-03] MEDS ORDERED: AMOX TR/POT CLAV 875MG/125MG TABLETS (FP) PO SCH (17:30)
== END 2018-11-03 17:41 | disposition home or self-care (01) | DRG 383 ==
LOC: JER 09:38 → JERBED 11:48 → J6S 12:44
PROVIDERS: ADMIT Internal Medicine; ATTEND Internal Medicine
PROC: 0H98XZZ Drainage of Buttock Skin, External Approach (ICD-10-PCS; principal; 2018-11-01 08:00)
DX: L02.31 Cutaneous abscess of buttock (principal); L05.01 Pilonidal cyst with abscess; E66.01 Morbid (severe) obesity due to excess calories; Z68.41 Body mass index [BMI] 40.0-44.9, adult; R78.81 Bacteremia
CPT/HCPCS: 36415; 80053; 84702; 85025; 85610; 86850; 86900; 86901; 87040; 87070; 87186; 87205; 94760; 99283-25; J7030

== ENCOUNTER 2022-02-24 10:56 | Emergency (ER) | payer OTHER ==
[2022-02-24 11:36] VITALS: BP 100/61; PULSE 88; TEMP 98; BMI 29.7
[2022-02-24] MEDS ORDERED: KETOROLAC TROMETHAMINE 30 MG/1 ML VIAL IM ONE (12:59)
[2022-02-24] MEDS ORDERED: KETOROLAC TROMETHAMINE 30 MG/1 ML VIAL ONE (13:04)
[2022-02-24 17:07] LABS: BASO % 1.4 % (0-2.0); EOS % 3.9 % (0-4.5); HEMATOCRIT 27.7 % (32.4-45.2); HEMOGLOBIN 8.4 GM/dL (10.7-15.3); LYMPH % 19.5 % (8-40); MCHC 30.3 g/dl (32.0-36.0); MEAN CELL VOLUME 63.2 fl (80-96); MEAN PLT VOLUME 9.3 fl (7.5-11.1); MONO % 9.9 % (3.8-10.2); NEUT % 65.3 % (42.8-82.8); PLATELET COUNT 267 10^3/uL (134-434); RBC 4.38 M/mm3 (3.60-5.2); RDW 18.7 % (11.6-15.6); WHITE BLOOD COUNT 8.2 K/mm3 (4.0-10.0)
[2022-02-24 17:12] LABS: MCH 19.1 pg (25.7-33.7)
[2022-02-24 17:26] LABS: CALCIUM 8.9 mg/dL (8.5-10.1)
[2022-02-24 17:27] LABS: ALBUMIN 3.3 g/dl (3.4-5.0); BLOOD UREA NITROGEN 7.6 mg/dL (7-18)
[2022-02-24 17:30] LABS: CREATININE 0.7 mg/dL (0.55-1.3)
[2022-02-24 17:31] LABS: BILIRUBIN,TOTAL 0.3 mg/dL (0.2-1); TOT PROT 6.8 g/dl (6.4-8.2)
[2022-02-24 18:10] LABS: ANISOCYTOSIS 1+; MACROCYTOSIS 0
[2022-02-24 18:45] LABS: PLATELET ESTIMATE ADEQUATE
== END 2022-02-24 17:46 | disposition home or self-care (01) ==
LOC: JERFT 10:56
PROC: 3E0233Z Introduction of Anti-inflammatory into Muscle, Percutaneous Approach (ICD-10-PCS; principal; 2022-02-24)
DX: N61.1 Abscess of the breast and nipple (principal)
CPT/HCPCS: 36415; 76642-TC-RT; 80053; 85025; 99284-25